=== PATIENT | female | born 1975 | race Caucasian/White ===

== ENCOUNTER → 2017-02-19 | Outpatient (CLI) | payer OTHER ==
[2017-02-19 14:12] VITALS: BP 109/78; PULSE 94; RESP 15; TEMP 99.8; BMI 38.5
--- NOTE | 2017-02-19 14:37 | P.HPBAR ---
Bariatric H&P - History & Physicial H&P Date: 02/19/17 History & Physicial: Visit/CC: presurgical\EGD results Patient initial contact: Initial weight: 110.268 kg Initial weight in pounds: 243.10 Height: 5 ft 5.75 in Initial BMI: 39.5 Last weight: Current weight: 107.365 kg Current weight in pounds: 236.70 Current BMI: 38.5 [place] body weight (based on NIH guidelines): 58.4 kg Excess body weight loss: 5.5% The patient is a 42 year-old F who presents for Bariatric Assessment. Patient is preoperative for sleeve gastrectomy. She underwent recent EGD is found have evidence of chronic esophagitis. She is currently taking Zantac twice a day. Past Medical History Past Medical History: GERD/Reflux, Hyperlipidemia, Osteoarthritis (OA) Additional Past Medical History / Comment(s): DIVERTICULITIS, PLANTAR FASCIITIS. , SLEEP STUDY- STATES NO RESULTS YET. History of Any Multi-Drug Resistant Organisms: None Reported Past Surgical History: Appendectomy, Cholecystectomy, Tonsillectomy, Tubal Ligation Additional Past Surgical History / Comment(s): FOOT SURGERY Past Anesthesia/Blood Transfusion Reactions: No Reported Reaction Smoking Status: Current every day smoker - Past Family History Mother Family Medical History: Cancer Additional Family Medical History / Comment(s): KIDNEY CA Father Family Medical History: Cancer Additional Family Medical History / Comment(s): COLON CANCER Sister(s) Family Medical History: Cancer Additional Family Medical History / Comment(s): MELANOMA Surgical - Exam Vital Signs Temp Pulse Resp BP 99.8 F H 94 15 109/78 02/19/17 14:06 02/19/17 14:06 02/19/17 14:06 02/19/17 14:06 - General well developed, no distress - Eyes PERRL - ENT normal pinna - Neck no masses - Respiratory normal expansion - Cardiovascular Rhythm: regular - Abdomen Abdomen: soft, non tender Bariatric Assessment & Plan Plan: RBC with BMI 38 GERD patient will continue Zantac for medical therapy. Patient will follow-up in 3 months. We discussed gastric sleeve and over the risks of the procedure. Bariatric Checklist Checklist: Plan: Checklist: EGD: 1. Hiatal hernia: 2. H. Pylori: HgbA1c: Vitamin D: Smoking: Current every day smoker Primary care physician referral: [facility] Psychiatry clearance: Cardiology clearance: Sleep study: Diet journal: VTE risk score: VTE risk level: Rehab needs at discharge:
[2017-02-19 14:51] LABS: EKG EKG PERFORMED
[2017-02-19 15:06] LABS: CH 30.9; CHCM 32.9; HCT 38.5 % (34.0-46.0); HDW 2.48; HGB 12.4 gm/dL (11.4-16.0); MCH 30.5 pg (25.0-35.0); MCHC 32.3 g/dL (31.0-37.0); MCV 94.4 fL (80.0-100.0); Mean Platelet Volume 7.2; RBC 4.08 m/uL (3.80-5.40); RDW 14.4 % (11.5-15.5); WBC 7.5 k/uL (3.8-10.6)
[2017-02-19 15:23] LABS: ALT 37 U/L (9-52); AST 19 U/L (14-36); Alkaline Phosphatase 75 U/L (38-126); Anion Gap 7 mmol/L; Blood Urea Nitrogen 13 mg/dL (7-17); Calcium 9.5 mg/dL (8.4-10.2); Carbon Dioxide 25 mmol/L (22-30); Chloride 108 mmol/L (98-107); Glucose 90 mg/dL (74-99); Non-African American GFR(MDRD) >60 (>60 ml/min/1.73 sqM); Potassium 4.4 mmol/L (3.5-5.1); Sodium 140 mmol/L (137-145); Total Bilirubin 0.2 mg/dL (0.2-1.3); Total Protein 6.3 g/dL (6.3-8.2)
== END ==
LOC: BARWHC3 13:28
PROVIDERS: ATTEND Surgery
DX: Z48.815 Encounter for surgical aftercare following surgery on the digestive system (principal); K21.9 Gastro-esophageal reflux disease without esophagitis; F17.200 Nicotine dependence, unspecified, uncomplicated; Z79.899 Other long term (current) drug therapy; Z98.84 Bariatric surgery status
CPT/HCPCS: 80053; 82607; 85027; 82306; 83036; 93005; G0463; 99211

== ENCOUNTER → 2017-06-11 | Outpatient (CLI) | payer OTHER ==
[2017-06-11 11:21] VITALS: BMI 40.3
== END | disposition home or self-care (01) ==
LOC: BARWHC3 08:29
PROVIDERS: ATTEND Surgery
DX: E66.01 Morbid (severe) obesity due to excess calories (principal); Z68.41 Body mass index [BMI] 40.0-44.9, adult; Z71.3 Dietary counseling and surveillance
CPT/HCPCS: 97804

== ENCOUNTER → 2018-04-22 | Outpatient (CLI) | payer OTHER ==
[2018-04-22 14:29] VITALS: BP 114/60; PULSE 87; RESP 16; TEMP 98.5; BMI 42.1
--- NOTE | 2018-04-22 14:36 | P.HPBAR ---
Bariatric H&P - History & Physicial H&P Date: 04/22/18 History & Physicial: Visit/CC: to pursue surgery again different ins Patient initial contact: Initial weight: 110.268 kg Initial weight in pounds: 243.10 Height: 5 ft 5.75 in Initial BMI: 39.5 Last weight: Current weight: 117.48 kg Current weight in pounds: 259.00 Current BMI: 42.1 [place] body weight (based on NIH guidelines): 58.4 kg Excess body weight loss: The patient is a 43 year-old F who presents for Bariatric Assessment. Patient presents today for sleeve gastrectomy previously or constipation. Her insurance has changed. She is requiring 6 months of position or weight loss. Patient is gained 11 pounds since her last visit. We went over the risks and benefits of sleeve gastrectomy. Past Medical History Past Medical History: GERD/Reflux, Hyperlipidemia, Osteoarthritis (OA) Additional Past Medical History / Comment(s): DIVERTICULITIS, PLANTAR FASCIITIS. , SLEEP STUDY- STATES NO RESULTS YET. History of Any Multi-Drug Resistant Organisms: None Reported Past Surgical History: Appendectomy, Cholecystectomy, Tonsillectomy, Tubal Ligation Additional Past Surgical History / Comment(s): FOOT SURGERY Past Anesthesia/Blood Transfusion Reactions: No Reported Reaction Past Psychological History: Anxiety, Depression Smoking Status: Current every day smoker Past Alcohol Use History: None Reported Additional Past Alcohol Use History / Comment(s): SMOKING 1/2 PPD (DOWN FROM 1 PPD). SMOKING FOR 20 YEARS. Past Drug Use History: None Reported - Past Family History Mother Family Medical History: Cancer Additional Family Medical History / Comment(s): KIDNEY CA Father Family Medical History: Cancer Additional Family Medical History / Comment(s): COLON CANCER Sister(s) Family Medical History: Cancer Additional Family Medical History / Comment(s): MELANOMA Surgical - Exam Vital Signs Temp Pulse Resp BP 98.5 F 87 16 114/60 04/22/18 14:23 04/22/18 14:23 04/22/18 14:23 04/22/18 14:23 - General well developed, well nourished, no distress - Eyes PERRL - ENT normal pinna - Neck no masses - Respiratory normal expansion - Cardiovascular Rhythm: regular - Abdomen Abdomen: soft, non tender Bariatric Assessment & Plan Plan: Morbid obesity, BMI 42. Patient will follow-up in one month. She [facility]. Bariatric Checklist Checklist: Plan: Checklist: EGD: 1. Hiatal hernia: 2. H. Pylori: HgbA1c: Vitamin D: Smoking: Current every day smoker Primary care physician referral: cy chavarria Psychiatry clearance: Cardiology clearance: Sleep study: Diet journal: VTE risk score: VTE risk level: Rehab needs at discharge:
== END | disposition home or self-care (01) ==
LOC: BARWHC3 13:44
PROVIDERS: ATTEND Surgery
DX: E66.01 Morbid (severe) obesity due to excess calories (principal); K21.9 Gastro-esophageal reflux disease without esophagitis; E78.5 Hyperlipidemia, unspecified; M19.90 Unspecified osteoarthritis, unspecified site; F17.210 Nicotine dependence, cigarettes, uncomplicated; F41.9 Anxiety disorder, unspecified; F32.9 Major depressive disorder, single episode, unspecified; Z90.49 Acquired absence of other specified parts of digestive tract; Z90.89 Acquired absence of other organs; Z98.51 Tubal ligation status; Z98.890 Other specified postprocedural states; Z68.41 Body mass index [BMI] 40.0-44.9, adult
CPT/HCPCS: 99211

== ENCOUNTER → 2018-05-13 | Outpatient (CLI) | payer OTHER ==
[2018-05-13 15:30] VITALS: BP 123/62; PULSE 78; RESP 16; TEMP 98.2; BMI 41.8
--- NOTE | 2018-05-14 09:39 | P.HPBAR ---
Bariatric H&P - History & Physicial H&P Date: 05/13/18 History & Physicial: Visit/CC: PRE-SURG? Patient initial contact: Initial weight: 110.268 kg Initial weight in pounds: 243.10 Height: 5 ft 5.75 in Initial BMI: 39.5 Last weight: Current weight: 116.573 kg Current weight in pounds: 257.00 Current BMI: 41.8 [place] body weight (based on NIH guidelines): 58.4 kg Excess body weight loss: The patient is a 43 year-old F who presents for Bariatric Assessment. Patient presents for presurgical consultation. She states she has completed her 6 or 7 months a physician directed weight loss consultations. We went over the sleeve gastrectomy. Patient has a good understanding of the sleeve gastrectomy. Her BMI is 41. Past Medical History Past Medical History: GERD/Reflux, Hyperlipidemia, Osteoarthritis (OA) Additional Past Medical History / Comment(s): DIVERTICULITIS, PLANTAR FASCIITIS. , SLEEP STUDY- STATES NO RESULTS YET. History of Any Multi-Drug Resistant Organisms: None Reported Past Surgical History: Appendectomy, Cholecystectomy, Tonsillectomy, Tubal Ligation Additional Past Surgical History / Comment(s): FOOT SURGERY Past Anesthesia/Blood Transfusion Reactions: No Reported Reaction Past Psychological History: Anxiety, Depression Smoking Status: Current every day smoker Past Alcohol Use History: None Reported Additional Past Alcohol Use History / Comment(s): SMOKING 1/2 PPD (DOWN FROM 1 PPD). SMOKING FOR 20 YEARS. Past Drug Use History: None Reported - Past Family History Mother Family Medical History: Cancer Additional Family Medical History / Comment(s): KIDNEY CA Father Family Medical History: Cancer Additional Family Medical History / Comment(s): COLON CANCER Sister(s) Family Medical History: Cancer Additional Family Medical History / Comment(s): MELANOMA Surgical - Exam Vital Signs Temp Pulse Resp BP 98.2 F 78 16 123/62 05/13/18 15:27 05/13/18 15:27 05/13/18 15:27 05/13/18 15:27 BMI 41 - General well developed, well nourished, no distress - Eyes PERRL - ENT normal pinna - Neck no masses - Respiratory normal expansion - Cardiovascular Rhythm: regular - Abdomen Abdomen: soft, non tender Bariatric Assessment & Plan Plan: Morbid obesity, BMI 41. Patient will be scheduled for sleeve gastrectomy once her authorization is complete. We went over the risks and benefits of procedure including conversion to the open procedure and injury to the stomach liver spleen. And gastric staple line disruption, bleeding or scarring. Bariatric Checklist Checklist: Plan: Checklist: EGD: 1. Hiatal hernia: 2. H. Pylori: HgbA1c: Vitamin D: Smoking: Current every day smoker Primary care physician referral: cy chavarria Psychiatry clearance: Cardiology clearance: Sleep study: Diet journal: VTE risk score: VTE risk level: Rehab needs at discharge:
== END | disposition home or self-care (01) ==
LOC: BARWHC3 15:27
PROVIDERS: ATTEND Surgery
DX: E66.01 Morbid (severe) obesity due to excess calories (principal); F17.210 Nicotine dependence, cigarettes, uncomplicated; Z68.41 Body mass index [BMI] 40.0-44.9, adult
CPT/HCPCS: 99211

== ENCOUNTER 2018-06-25 06:27 | Inpatient (IN) | payer OTHER ==
[~2018-06-25 06:27] MED LIST: DEXAMETHASONE SOD PHOSPHATE 10 MG/ML 1 ML VIAL IV ONE; ENOXAPARIN 40 MG/0.4 ML SYRINGE SQ ONE; MIDAZOLAM (PF) 2 MG/2 ML VIAL IV PRN; ONDANSETRON 4 MG/2 ML VIAL IVP ONE; SCOPOLAMINE 1.5MG/72HR PATCH TRANSDERM ONE; ceFAZolin IN SWFI 2 GM/20 ML SYRINGE IVP ONE
[2018-06-25] MEDS: LACTATED RINGERS 1,000 ML IV SCH (07:01)
[2018-06-25] MEDS ORDERED: LIDOCAINE 1% 20 ML VIAL (10MG/ML) FOR IV START INTRADERMA ONE (07:02)
[2018-06-25] MEDS ORDERED: MIDAZOLAM 2 MG/2 ML VIAL IV ONE (07:10)
[2018-06-25] MEDS ORDERED: ACETAMINOPHEN IV (For NPO) 1,000 MG/100 ML VIAL ONE (07:50)
[2018-06-25] MEDS ORDERED: ROCURONIUM BROMIDE 10 MG/ML 10 ML VIAL IV ONE (07:50)
[2018-06-25] MEDS ORDERED: PROPOFOL 10 MG/ML 20 ML VIAL IV ONE (07:50)
[2018-06-25] MEDS ORDERED: LIDOCAINE 1% INJ 10MG/ML (20 ML MDV) ONE (07:50)
[2018-06-25] MEDS ORDERED: KETOROLAC 30 MG/ML 1 ML VIAL ONE (07:50)
[2018-06-25] MEDS ORDERED: GLYCOPYRROLATE 0.2 MG/ML 2 ML VIAL ONE (07:50)
[2018-06-25] MEDS ORDERED: SUCCINYLCHOLINE CHLORIDE 100 MG/5 ML SYR IV ONE (07:50)
[2018-06-25] MEDS ORDERED: NEOSTIGMINE 1 MG/ML 10 ML VIAL ONE (07:50)
[2018-06-25] MEDS ORDERED: MIDAZOLAM 2 MG/2 ML VIAL ONE (07:50)
[2018-06-25] MEDS ORDERED: fentaNYL (PF) 50 MCG/ML 2 ML AMP ONE (07:50)
--- NOTE | 2018-06-25 07:55 | P.GSHP ---
History of Present Illness H&P Date: 06/25/18 Chief Complaint: Morbid obesity, BMI 41 This a 43-year-old female who presents today for laparoscopic sleeve gastrectomy. Patient has had lifetime pros obesity. Her BMI is 41. Patient is well detailed on the procedure sleeve gastrectomy. She understands risks of surgery including bleeding, conversion to the open procedure, issues with the gastric staple line such as bleeding, scarring and perforation. Past Medical History Past Medical History: Eye Disorder, GERD/Reflux, Hyperlipidemia, Memory Impairment, Osteoarthritis (OA), Sleep Apnea/CPAP/BIPAP Additional Past Medical History / Comment(s): DIVERTICULITIS, PLANTAR FASCIITIS. No CPAP use. "Very dry eyes". History of Any Multi-Drug Resistant Organisms: None Reported Past Surgical History: Appendectomy, Cholecystectomy, Hysterectomy, Tonsillectomy, Tubal Ligation Additional Past Surgical History / Comment(s): FOOT SURGERY. Past Anesthesia/Blood Transfusion Reactions: No Reported Reaction Past Psychological History: Anxiety, Depression Smoking Status: Current every day smoker Past Alcohol Use History: None Reported Additional Past Alcohol Use History / Comment(s): SMOKING <1/2 PPD (DOWN FROM 1 PPD). SMOKING FOR 20 YEARS. Past Drug Use History: None Reported - Past Family History Mother Family Medical History: Cancer Additional Family Medical History / Comment(s): KIDNEY CA Father Family Medical History: Cancer Additional Family Medical History / Comment(s): COLON CANCER Sister(s) Family Medical History: Cancer Additional Family Medical History / Comment(s): MELANOMA Medications and Allergies Home Medications Medication Instructions Recorded Confirmed Type Atorvastatin [Lipitor] 20 mg PO QAM 01/15/17 06/18/18 History Sertraline [Zoloft] 200 mg PO QAM 01/15/17 06/18/18 History Omeprazole [PriLOSEC] 20 mg PO QAM 06/11/17 06/18/18 History Divalproex Sodium [Depakote] 1,500 mg PO QAM 06/10/18 06/18/18 History Ibuprofen [Motrin] 800 mg PO TID PRN 06/10/18 06/18/18 History Acetaminophen Tab [Tylenol Tab] 3 tab PO Q4-6H PRN 06/18/18 06/18/18 History Allergies Allergy/AdvReac Type Severity Reaction Status Date / Time No Known Allergies Allergy Verified 06/25/18 06:46 Surgical - Exam Vital Signs Temp Pulse Resp BP Pulse Ox 97.6 F 84 16 102/43 95 06/25/18 06:57 06/25/18 06:57 06/25/18 06:57 06/25/18 06:57 06/25/18 06:57 - General BMI 41 well developed, no distress - Eyes PERRL - ENT normal pinna - Neck no masses - Respiratory normal expansion - Cardiovascular Rhythm: regular - Abdomen Abdomen: soft, non tender Assessment and Plan Assessment: RBC, BMI 41. We'll perform laparoscopic sleeve gastrectomy.
[2018-06-25] MEDS ORDERED: BUPIVACAINE-EPI 0.5%-1:200,000 10 ML VIAL SQ ONE (08:36)
[2018-06-25] MEDS ORDERED: METHYLENE BLUE 3 MG in DEXTROSE 5% IN WATER 500 ML IRRIGATION ONE ×2 (09:15)
[2018-06-25] MEDS ORDERED: LACTATED RINGERS 1,000 ML IV ONE (09:30)
[2018-06-25] MEDS: HYDROmorphone 0.5 MG/0.5 ML SYRINGE IVP PRN ×4 (09:44→09:58)
[2018-06-25] MEDS ORDERED: ONDANSETRON 4 MG/2 ML VIAL IVP ONE (09:50)
[2018-06-25] MEDS ORDERED: NALOXONE 0.4 MG/ML 1 ML VIAL IV PRN (09:58)
--- NOTE | 2018-06-25 09:58 | P.OP ---
Date of Procedure: 06/25/18 Preoperative Diagnosis: Morbid obesity, BMI 41 Postoperative Diagnosis: Morbid obesity, BMI 41 Procedure(s) Performed: Laparoscopic sleeve gastrectomy Laparoscopic repair of hiatal hernia Anesthesia: VIPUL Surgeon: Edis Ramsey Estimated Blood Loss (ml): 20 Pathology: other (Gastric sleeve) Condition: stable Disposition: PACU Description of Procedure: The patient was placed on the operating room table in the supine position. She received general anesthesia and then was placed in dorsal lithotomy position. Her abdomen was prepped and draped in sterile fashion. The skin incision sites were anesthetized 1% local Xylocaine. And then the skin was incised with an 11 blade in the left lateral position. Using a blade less trocar under direct visualization the peritoneal cavity was entered. The abdomen was insufflated and then a 5 mm laparoscope was placed into the peritoneal cavity. A 5 mm trocar was placed in the right epigastric, and right lateral position. A 15 mm trocar was placed in the supra-umbilical position and another 5 mm trocar was placed in the left lateral position. The left lateral lobe of the liver was retracted. The stomach was visualized. The patient appeared to have a small sliding hiatal hernia. A crural dissection used the Harmonic scissors was performed. The leo was dissected in a 360 fashion. A retrocrural repair of the hernia was performed. The greater curvature of the stomach was then dissected using the Harmonic scissors. The dissection occurred approximately 5 cm from the pylorus to the level of the left leo. . At this point a 40-Syriac bougie dilator was placed the oropharynx and passed into the esophagus and into the stomach by the GREEN END WORKER. The sleeve gastrectomy was performed by using the powered echelon stapler with a seam guard buttress material. Sequential firings of the stapler were performed. The gastric remnant was then brought out through the 15 mm trocar site. The dilator was withdrawn. And a orogastric tube was replaced into the stomach. The stomach was insufflated with 200 mL of methylene blue normal saline. There was no evidence of extravasation. The abdomen was irrigated there is no bleeding seen. The Terell-Pascale device was used to close the 15 mm trocar with 0 Vicryl. Skin was closed with interrupted 3-0 Monocryl sutures once the trochars withdrawn. Dermabond dressing was applied. Patient was sent to recovery in stable condition.
[2018-06-25] MEDS: HYDROmorphone 1 MG/ML 1 ML SYRINGE IVP PRN ×4 (11:03→20:26)
[2018-06-25] MEDS: KETOROLAC 30 MG/ML 1 ML VIAL IVP SCH ×2 (11:04→17:11)
[2018-06-25] MEDS: ALBUTEROL NEBULIZED 2.5 MG/3 ML INHALATION SCH ×3 (12:21→19:45)
[2018-06-25] MEDS: ONDANSETRON 4 MG/2 ML VIAL IVP PRN ×3 (13:14→21:19)
[2018-06-25] MEDS: SIMETHICONE 40 MG/0.6 ML DROPS 2,000 MG/30 ML BOTTLE PO PRN (13:22)
[2018-06-25] MEDS: 0.9% NACL WITH KCL 20 MEQ/L 1,000 ML IV SCH ×2 (14:00→20:00)
[2018-06-25] MEDS: AMPICILLIN-SULBACTAM 3 GM in SODIUM CHLORIDE 0.9% 100 ML IVPB SCH ×2 (14:00→20:00)
--- NOTE | 2018-06-25 14:14 | P.CONS ---
History of Present Illness - History of Present Illness this is a pleasant 43 years old female with past medical history of GERD, hyp erlipidemia, sleep apnea, esteoarthritis, history of hysterectomy. Who presents for elective laparoscopic surgery for her hiatal hernia patient is postoperative day #0. She denies chest pain or dyspnea. No change in urine or bowel habits. No fever , however she has nausea she is nothing by mouth currently, and she is going for swallow evaluation in the morning Review of Systems CONSTITUTIONAL: No fever, no malaise, no fatigue. HEENT: No recent visual problems or hearing problems. Denied any sore throat. CARDIOVASCULAR: No orthopnea, PND, no palpitations, no syncope. PULMONARY: No shortness of breath, no cough, no hemoptysis. GASTROINTESTINAL: No diarrhea, no nausea, no vomiting, no abdominal pain. Normoactive bowel sounds. NEUROLOGICAL: No headaches, no weakness, no numbness. HEMATOLOGICAL: Denies any bleeding or petechiae. GENITOURINARY: Denies any burning micturition, frequency, or urgency. MUSCULOSKELETAL/RHEUMATOLOGICAL: Denies any joint pain, swelling, or any muscle pain. ENDOCRINE: Denies any polyuria or polydipsia. Past Medical History Past Medical History: Eye Disorder, GERD/Reflux, Hyperlipidemia, Memory Impairment, Osteoarthritis (OA), Sleep Apnea/CPAP/BIPAP Additional Past Medical History / Comment(s): DIVERTICULITIS, PLANTAR FASCIITIS. No CPAP use. "Very dry eyes". History of Any Multi-Drug Resistant Organisms: None Reported Past Surgical History: Appendectomy, Cholecystectomy, Hysterectomy, Tonsillect maur, Tubal Ligation Additional Past Surgical History / Comment(s): FOOT SURGERY. Past Anesthesia/Blood Transfusion Reactions: No Reported Reaction Past Psychological History: Anxiety, Depression Smoking Status: Current every day smoker Past Alcohol Use History: None Reported Additional Past Alcohol Use History / Comment(s): SMOKING <1/2 PPD (DOWN FROM 1 PPD). SMOKING FOR 20 YEARS. Past Drug Use History: None Reported - Past Family History Mother Family Medical History: Cancer Additional Family Medical History / Comment(s): KIDNEY CA Father Family Medical History: Cancer Additional Family Medical History / Comment(s): COLON CANCER Sister(s) Family Medical History: Cancer Additional Family Medical History / Comment(s): MELANOMA Medications and Allergies Home Medications Medication Instructions Recorded Confirmed Type Sertraline [Zoloft] 200 mg PO QAM 01/15/17 06/25/18 History Omeprazole [PriLOSEC] 20 mg PO QAM 06/11/17 06/25/18 History Divalproex Sodium [Depakote] 1,500 mg PO QAM 06/10/18 06/25/18 History Ibuprofen [Motrin] 800 mg PO TID PRN 06/10/18 06/25/18 History Acetaminophen Tab [Tylenol Tab] 975 mg PO Q4-6H PRN 06/18/18 06/25/18 History Atorvastatin [Lipitor] 20 mg PO DAILY 06/25/18 06/25/18 History Allergies Allergy/AdvReac Type Severity Reaction Status Date / Time No Known Allergies Allergy Verified 06/25/18 10:10 Physical Exam Vitals: Vital Signs Temp Pulse Pulse Resp BP Pulse Ox 06/25/18 12:33 75 06/25/18 12:21 68 06/25/18 10:16 60 16 143/66 95 06/25/18 10:01 62 16 135/68 92 L 06/25/18 09:47 61 16 141/77 98 06/25/18 09:32 97.8 F 74 18 119/84 98 06/25/18 07:25 70 16 95 06/25/18 06:57 97.6 F 84 16 102/43 95 Intake and Output 06/24/18 06/25/18 06/25/18 22:59 06:59 14:59 Intake Total 1600.3 Output Total 5 Balance 1595.3 Intake: IV 1600.3 Output: Estimated Blood Loss 5 Other: Weight 111 kg GENERAL: The patient is alert and oriented x3, not in any acute distress. Well developed, well nourished. HEENT: Pupils are round and equally reacting to light. EOMI. No scleral icterus. No conjunctival pallor. Normocephalic, atraumatic. No pharyngeal erythema. No thyromegaly. CARDIOVASCULAR: S1 and S2 present. No murmurs, rubs, or gallops. PULMONARY: Chest is clear to auscultation, no wheezing or crackles. -ABDOMEN: Soft, nontender, nondistended, normoactive bowel sounds. No palpable organomegaly. laparoscopic wounds are healing MUSCULOSKELETAL: No joint swelling or deformity. EXTREMITIES: No cyanosis, clubbing, or pedal edema. NEUROLOGICAL: Gross neurological examination did not reveal any focal deficits. SKIN: No rashes. Assessment and Plan Assessment: laparoscopic correction of her hiatal hernia with sleeve gastrectomy history of GERD Hyperlipidemia History of sleep apnea Osteoarthritis Plan: this is a pleasant 43 years old female who presents for laparoscopic correction of he had full hernia. Continue with pain medication. Continue with incentive spirometry. Labs and medication were reviewed.. Continue same treatment. Continue with symptomatic treatment. Monitor lytes and vitals. DVT and GI prophylaxis. Further recommendations of the clinical course of the patient thank you for consulting us
[2018-06-25] MEDS ORDERED: METHYL SALICYLATE/MENTHOL CREAM 5 OZ TOPICAL PRN (14:27)
[2018-06-25] MEDS: HYOSCYAMINE ORAL DROPS 1.875 MG/15 ML BOTTLE PO PRN (17:12)
[2018-06-25] MEDS: ENOXAPARIN 40 MG/0.4 ML SYRINGE SQ SCH (20:26)
[2018-06-26] MEDS: KETOROLAC 30 MG/ML 1 ML VIAL IVP SCH ×5 (00:08→23:33)
[2018-06-26] MEDS: SIMETHICONE 40 MG/0.6 ML DROPS 2,000 MG/30 ML BOTTLE PO PRN ×2 (00:09→22:29)
[2018-06-26] MEDS: HYOSCYAMINE ORAL DROPS 1.875 MG/15 ML BOTTLE PO PRN ×3 (00:09→22:29)
[2018-06-26] MEDS: HYDROmorphone 1 MG/ML 1 ML SYRINGE IVP PRN ×5 (01:43→22:29)
[2018-06-26] MEDS: 0.9% NACL WITH KCL 20 MEQ/L 1,000 ML IV SCH ×2 (01:44→09:50)
[2018-06-26] MEDS: ONDANSETRON 4 MG/2 ML VIAL IVP PRN ×4 (03:29→18:58)
[2018-06-26] MEDS: PANTOPRAZOLE 40 MG/10 ML VIAL IV SCH (07:11)
[2018-06-26 07:33] LABS: Basophils % (A) 0 %; Eosinophils # (A) 0.1 k/uL (0-0.7); Eosinophils % (A) 1 %; HCT 32.1 % (34.0-46.0); HGB 10.5 gm/dL (11.4-16.0); Lymphocytes # (A) 2.4 k/uL (1.0-4.8); Lymphocytes % (A) 32 %; MCH 29.5 pg (25.0-35.0); MCHC 32.8 g/dL (31.0-37.0); Mean Platelet Volume 7.3; Monocytes # (A) 0.3 k/uL (0-1.0); Monocytes % (A) 4 %; Neutrophils # (A) 4.6 k/uL (1.3-7.7); Neutrophils % (A) 62 %; Platelet Count 260 k/uL (150-450); RBC 3.57 m/uL (3.80-5.40); WBC 7.4 k/uL (3.8-10.6)
[2018-06-26] MEDS: ALBUTEROL NEBULIZED 2.5 MG/3 ML INHALATION SCH ×4 (07:55→19:38)
[2018-06-26 08:01] LABS: Anion Gap 5 mmol/L; Blood Urea Nitrogen 8 mg/dL (7-17); Calcium 9.1 mg/dL (8.4-10.2); Carbon Dioxide 28 mmol/L (22-30); Chloride 110 mmol/L (98-107); Magnesium 1.9 mg/dL (1.6-2.3); Phosphorus 2.9 mg/dL (2.5-4.5); Potassium 4.3 mmol/L (3.5-5.1); Sodium 143 mmol/L (137-145)
[2018-06-26] MEDS: LACTATED RINGERS 1,000 ML IV SCH (08:09)
[2018-06-26] MEDS: ENOXAPARIN 40 MG/0.4 ML SYRINGE SQ SCH ×2 (08:15→20:51)
[2018-06-26] MEDS ORDERED: DEXAMETHASONE SOD PHOSPHATE 10 MG/ML 1 ML VIAL IV STA (10:29)
--- NOTE | 2018-06-26 13:40 | P.PN ---
Subjective Progress Note Date: 06/26/18 CHIEF COMPLAINT: Morbid obesity HISTORY OF PRESENT ILLNESS: 43-year-old female who underwent laparoscopic sleeve gastrectomy and repair of hiatal hernia. POD #1. Patient has been complaining of nausea and vomiting this morning. She is unable to have esophagram performed due to nausea. PHYSICAL EXAM: VITAL SIGNS: Reviewed. GENERAL: Well-developed in no acute distress. HEENT: No sclera icterus. Extraocular movements grossly intact. Moist buccal mucosa. Head is atraumatic, normocephalic. ABDOMEN: Soft. Nondistended. Nontender. NEUROLOGIC: Alert and oriented. Cranial nerves II through XII grossly intact. ASSESSMENT: 1. Morbid obesity, status post laparoscopic sleeve gastrectomy and repair of hiatal hernia PLAN: 1. Continue Zofran 2. Decadron 10 mg IV 1 dose 3. Perform esophagram FREDDY if patients nausea improves 4. Patient informed her discharge will be delayed until tomorrow Nurse practitioner note has been reviewed by physician. Signing provider agrees with the documented findings, assessment, and plan of care. Objective - Vital Signs Vital signs: Vital Signs Temp 98.4 F 06/26/18 07:57 Pulse 72 06/26/18 12:02 Resp 16 06/26/18 07:57 BP 105/64 06/26/18 07:57 Pulse Ox 90 L 06/26/18 07:57 Intake & Output 06/25/18 06/26/18 06/26/18 18:59 06:59 18:59 Intake Total 1600.3 1250 Output Total 5 3 Balance 1595.3 1247 Intake: IV 1600.3 Intake, IV Titration 1250 Amount 0.9% NaCl with KCl 20 Meq 1250 /l 1,000 ml @ 150 mls/hr IV .Q6H40M [facility] Rx#: [id number] Output: Emesis 3 Estimated Blood Loss 5 Other: Voiding Method Toilet Toilet # Voids 3 # Emeses 3 - Labs CBC & Chem 7: 06/26/18 06:48 06/26/18 06:48 Labs: Abnormal Lab Results - Last 24 Hours (Table) 06/26/18 06/26/18 Range/Units 06:48 06:48 RBC 3.57 L (3.80-5.40) m/uL Hgb 10.5 L (11.4-16.0) gm/dL Hct 32.1 L (34.0-46.0) % Chloride 110 H (98-107) mmol/L
--- NOTE | 2018-06-26 14:20 | FL ---
EXAMINATION TYPE: FL UGI DATE OF EXAM: 06/26/2018 COMPARISON: NONE HISTORY: Status post partial gastrectomy. TECHNIQUE: A single contrast UGI study is performed. FINDINGS: The patient swallowed contrast without difficulty or delay. Esophageal peristalsis and mo tility are within normal limits however there is marked delay of flow of contrast along the diaphragm atic hiatus into proximal stomach. Despite prolonging the examination no contrast was seen extending into the surgical gastric sleeve. There is no evidence of contrast extravasation to suggest leak at t he gastroesophageal junction although the gastric sleeve cannot be evaluated. IMPRESSION: Marked delay of flow along the gastroesophageal junction despite prolonging study length relating to obstruction status post recent gastric sleeve surgery likely from postoperative edema.
[2018-06-26] MEDS: DEXAMETHASONE SOD PHOSPHATE 4 MG/ML 1 ML VIAL IV SCH ×2 (16:43→23:34)
--- NOTE | 2018-06-26 18:07 | P.PN ---
Subjective Progress Note Date: 06/26/18 Hospital course:this is a pleasant 43 years old female with past medical history of GERD, hyperlipidemia, sleep apnea, esteoarthritis, history of hysterectomy. Who presents for elective laparoscopic surgery for her hiatal hernia patient is postoperative day #0. She denies chest pain or dyspnea. No change in urine or bowel habits. No fever , however she has nausea she is nothing by mouth currently, and she is going for swallow evaluation in the morning 06/26/2018 postop day #1. Pain controlled. Reports nausea with emesis this morning. Denies flatus or bowel movement. Esophagram/swallow evaluation postponed as per surgery. Denies chest pain, palpitations or increasing shortness of breath. Afebrile, normal WBC. Maintaining O2 sats in the high 90s on 2 L nasal cannula. Objective - Vital Signs Vital signs: Vital Signs Temp 97.6 F 06/26/18 14:28 Pulse 66 06/26/18 15:51 Resp 16 06/26/18 07:57 BP 104/59 06/26/18 14:28 Pulse Ox 96 06/26/18 14:28 Intake & Output 06/25/18 06/26/18 06/26/18 18:59 06:59 18:59 Intake Total 1600.3 1250 Output Total 5 3 Balance 1595.3 1247 Intake: IV 1600.3 Intake, IV Titration 1250 Amount 0.9% NaCl with KCl 20 Meq 1250 /l 1,000 ml @ 150 mls/hr IV .Q6H40M [facility] Rx#: [id number] Output: Emesis 3 Estimated Blood Loss 5 Other: Voiding Method Toilet Toilet # Voids 3 4 # Emeses 3 - Exam GENERAL: The patient is sitting up in bed, alert and oriented x3, no acute distress. HEENT: Pupils are round and equally reacting to light. EOMI. No scleral icterus. No conjunctival pallor. Normocephalic, atraumatic. CARDIOVASCULAR: S1 and S2 present. No murmurs, rubs, or gallops. PULMONARY: Chest is clear to auscultation, no wheezing or crackles. -ABDOMEN: Soft, nondistended, normoactive bowel sounds. Status post surgery. No guarding, no rigidity EXTREMITIES: No cyanosis, clubbing, or pedal edema. NEUROLOGICAL: Gross neurological examination did not reveal any focal deficits. SKIN: No rashes. - Labs CBC & Chem 7: 06/26/18 06:48 06/26/18 06:48 Labs: Abnormal Lab Results - Last 24 Hours (Table) 06/26/18 06/26/18 Range/Units 06:48 06:48 RBC 3.57 L (3.80-5.40) m/uL Hgb 10.5 L (11.4-16.0) gm/dL Hct 32.1 L (34.0-46.0) % Chloride 110 H (98-107) mmol/L Assessment and Plan Assessment: laparoscopic correction of her hiatal hernia with sleeve gastrectomy history of GERD Hyperlipidemia History of sleep apnea Osteoarthritis Plan: Continue on current medication regime , Zofran ,monitoring and symptomatic treatment. Aggressive pulmonary toileting with incentive spirometer reinforced. Esophagram postponed as per surgery secondary to patient's nausea vomiting. Increase ambulation as tolerated .Diet advancement/pain management as per surgery. The impression and plan of care has been dictated as directed. : I performed a history and examination of this patient, discussed the same with the dictator. I agree with the dictator's note ,documented as a scribe. Any additional findings or plans will be noted.
[2018-06-27] MEDS: LACTATED RINGERS 1,000 ML IV SCH (06:05)
[2018-06-27] MEDS: KETOROLAC 30 MG/ML 1 ML VIAL IVP SCH (06:06)
[2018-06-27] MEDS: DEXAMETHASONE SOD PHOSPHATE 4 MG/ML 1 ML VIAL IV SCH ×2 (06:07→11:35)
[2018-06-27] MEDS: ALBUTEROL NEBULIZED 2.5 MG/3 ML INHALATION SCH ×2 (07:30→11:07)
[2018-06-27 07:43] VITALS: BP 109/62; RESP 17; TEMP 98.3
[2018-06-27 07:44] VITALS: PULSE 76
[2018-06-27] MEDS: HYDROmorphone 1 MG/ML 1 ML SYRINGE IVP PRN (08:49)
[2018-06-27] MEDS: PANTOPRAZOLE 40 MG/10 ML VIAL IV SCH (08:49)
[2018-06-27] MEDS: ENOXAPARIN 40 MG/0.4 ML SYRINGE SQ SCH (08:50)
--- NOTE | 2018-06-27 09:53 | FL ---
Sleeve gastrectomy esophogram. EXAMINATION TYPE: FL UGI w esophagus DATE OF EXAM: 06/27/2018 9:49 AM CLINICAL HISTORY: Follow-up obstruction COMPARISON: 06/26/2018 Post gastric sleeve UGI. Pt given 25ml Isovue 370 1.11min fluoro time Sleeve gastrectomy esophagram and upper GI was performed following the ingestion of thin liquid bariu m. Esophageal peristalsis and motility are within normal limits. Noted are changes of sleeve gastrec neo. There is mild delay in esophagogastric transit much improved from yesterday's study. Contrast i s identified within the distal stomach. IMPRESSION: There is mild delay in esophagogastric transit much improved from yesterday's study. Contrast is daljit ntified within the distal stomach. Mild persistent edema at the sleeve gastrectomy site.
[2018-06-27] MEDS ORDERED: HYDROcodone/APAP 15 ML SOLUTION PO PRN (10:44)
[2018-06-27] MEDS ORDERED: DOCUSATE ORAL SOLN 100 MG/10 ML CUP PO SCH (11:00)
[2018-06-27 11:02] VITALS: BMI 40.7
--- NOTE | 2018-06-27 12:35 | P.DS ---
Providers Date of admission: 06/25/18 06:27 Expected date of discharge: 06/27/18 Attending physician: Edis Ramsey Consults: 06/25/18 09:58 Consult Physician Routine Consulting Provider: Robi Tsai Consult Reason/Comments: Medical management Do you want consulting provider notified?: Yes Primary care physician: Stated None Hospital Course: 43-year-old female who underwent laparoscopic sleeve gastrectomy and repair of hiatal hernia. Patient experienced nausea and inability to tolerate liquids on postop day #1. Esophagram revealed postoperative edema. The patient was started on Decadron [id number]. Repeat esophagram reveals improvement with contrast identified in the distal stomach. The patient is tolerating clear liquids. Her nausea has improved. She is stable for discharge home today. She is to follow-up with Dr. Ramsey in 2 weeks. Please see EMR for further hospital course details. Discharge Diagnosis: 1. Morbid obesity, status post laparoscopic sleeve gastrectomy and repair of hiatal hernia Nurse practitioner note has been reviewed by physician. Signing provider agrees with the documented findings, assessment, and plan of care. Plan - Discharge Summary Discharge Rx Participant: Yes New Discharge Prescriptions: New HYDROcodone/APAP 5-325MG [[place] 5-325] 1 tab PO Q4HR PRN 3 Days #18 tab PRN Reason: Pain Docusate [Colace] 100 mg PO BID PRN #30 capsule PRN Reason: Constipation Omeprazole 40 mg PO DAILY #30 capsule. Ondansetron Odt [Zofran Odt] 4 mg PO Q8HR PRN #30 tab PRN Reason: Nausea Sucralfate [Carafate] 1 gm PO BID #60 tablet No Action Sertraline [Zoloft] 200 mg PO QAM Omeprazole [PriLOSEC] 20 mg PO QAM Divalproex Sodium [Depakote] 1,500 mg PO QAM Ibuprofen [Motrin] 800 mg PO TID PRN PRN Reason: Pain Acetaminophen Tab [Tylenol Tab] 975 mg PO Q4-6H PRN PRN Reason: Pain Atorvastatin [Lipitor] 20 mg PO DAILY Discharge Medication List Sertraline [Zoloft] 200 mg PO QAM 01/15/17 [History] Omeprazole [PriLOSEC] 20 mg PO QAM 06/11/17 [History] Divalproex Sodium [Depakote] 1,500 mg PO QAM 06/10/18 [History] Ibuprofen [Motrin] 800 mg PO TID PRN 06/10/18 [History] Acetaminophen Tab [Tylenol Tab] 975 mg PO Q4-6H PRN 06/18/18 [History] Atorvastatin [Lipitor] 20 mg PO DAILY 06/25/18 [History] Docusate [Colace] 100 mg PO BID PRN #30 capsule 06/27/18 [Rx] HYDROcodone/APAP 5-325MG [[place] 5-325] 1 tab PO Q4HR PRN 3 Days #18 tab 06/27/18 [Rx] Omeprazole 40 mg PO DAILY #30 capsule. 06/27/18 [Rx] Ondansetron Odt [Zofran Odt] 4 mg PO Q8HR PRN #30 tab 06/27/18 [Rx] Sucralfate [Carafate] 1 gm PO BID #60 tablet 06/27/18 [Rx] Follow up Appointment(s)/Referral(s): [facility],. [NON-STAFF] - 2 Weeks Activity/Diet/Wound Care/Special Instructions: No driving while taking [place] No lifting over 10 pounds You may shower. No soaking or tub baths Very light activity until you are reevaluated at your follow up appointment with your surgeon Discharge Disposition: HOME SELF-CARE
--- NOTE | 2018-06-27 18:32 | P.PN ---
Subjective Progress Note Date: 06/27/18 Hospital course:this is a pleasant 43 years old female with past medical history of GERD, hyperlipidemia, sleep apnea, esteoarthritis, history of hysterectomy. Who presents for elective laparoscopic surgery for her hiatal hernia patient is postoperative day #0. She denies chest pain or dyspnea. No change in urine or bowel habits. No fever , however she has nausea she is nothing by mouth currently, and she is going for swallow evaluation in the morning 06/26/2018 postop day #1. Pain controlled. Reports nausea with emesis this morning. Denies flatus or bowel movement. Esophagram/swallow evaluation postponed as per surgery. Denies chest pain, palpitations or increasing shortness of breath. Afebrile, normal WBC. Maintaining O2 sats in the high 90s on 2 L nasal cannula. 06/27/2018 yesterday esophagram reported postop edema, maintained on Decadron. Swallow evaluation repeated this morning with reported improvement. Clear liquids initiated as per surgery. Denies nausea vomiting. Passing flatus. Currently denies pain. Denies chest pain, palpitations or shortness of breath. Denies lightheadedness dizziness or focal deficits. Objective - Vital Signs Vital signs: Vital Signs Temp 98.3 F 06/27/18 07:42 Pulse 76 06/27/18 07:44 Resp 17 06/27/18 07:42 BP 109/62 06/27/18 07:42 Pulse Ox 96 06/27/18 07:42 Intake & Output 06/26/18 06/27/18 06/27/18 18:59 06:59 18:59 Intake Total 1811.2 Balance 1811.2 Weight 111 kg Intake: Intake, IV Titration 1811.2 Amount 0.9% NaCl with KCl 20 Meq 800 /l 1,000 ml @ 100 mls/hr IV .BY DURATION REY Rx#: [id number] Mvi, Adult No.4 with Vit 1011.2 K 10 ml Thiamine 100 mg Folic Acid 1 mg In 0.9% NaCl with KCl 20 Meq/l 1, 000 ml @ 100 mls/hr IV . BY DURATION REY Rx#: [id number] Other: Voiding Method Toilet Toilet # Voids 4 1 - Exam GENERAL: The patient is sitting up at side of bed, alert and oriented x3, no acute distress. HEENT: Pupils are round and equally reacting to light. EOMI. No scleral icterus. No conjunctival pallor. Normocephalic, atraumatic. CARDIOVASCULAR: S1 and S2 present. No murmurs, rubs, or gallops. PULMONARY: Chest is clear to auscultation, no wheezing or crackles. -ABDOMEN: Soft, nondistended, normoactive bowel sounds. Status post surgery. No guarding, no rigidity EXTREMITIES: No cyanosis, clubbing, or pedal edema. NEUROLOGICAL: Gross neurological examination did not reveal any focal deficits. SKIN: No rashes. - Labs CBC & Chem 7: 06/26/18 06:48 06/26/18 06:48 Assessment and Plan Assessment: laparoscopic correction of her hiatal hernia with sleeve gastrectomy history of GERD Hyperlipidemia History of sleep apnea Osteoarthritis Plan: Continue on current medication regime ,monitoring and symptomatic treatment. Diet advanced as per surgery with anticipated discharge pending patient tolerates diet. Aggressive pulmonary toileting. Follow-up with PCP in 1 week. Further recommendations to follow. The impression and plan of care has been dictated as directed. : I performed a history and examination of this patient, discussed the same with the dictator. I agree with the dictator's note ,documented as a scribe. Any additional findings or plans will be noted.
== END 2018-06-27 13:45 | disposition home or self-care (01) | DRG 621 ==
LOC: 2ORMAIN 06:27 → 4SSUR 09:33
PROVIDERS: ADMIT Surgery; ATTEND Surgery
PROC: 0BQT4ZZ Repair Diaphragm, Percutaneous Endoscopic Approach (ICD-10-PCS; 2018-06-25)
PROC: 0DB64Z3 Excision of Stomach, Percutaneous Endoscopic Approach, Vertical (ICD-10-PCS; principal; 2018-06-25 08:00)
DX: E66.01 Morbid (severe) obesity due to excess calories (principal); Z68.41 Body mass index [BMI] 40.0-44.9, adult; E78.5 Hyperlipidemia, unspecified; F17.210 Nicotine dependence, cigarettes, uncomplicated; F32.9 Major depressive disorder, single episode, unspecified; F41.9 Anxiety disorder, unspecified; G47.30 Sleep apnea, unspecified; K21.9 Gastro-esophageal reflux disease without esophagitis; K44.9 Diaphragmatic hernia without obstruction or gangrene; M19.90 Unspecified osteoarthritis, unspecified site; M72.2 Plantar fascial fibromatosis; G89.29 Other chronic pain; M54.9 Dorsalgia, unspecified; M25.562 Pain in left knee; M25.561 Pain in right knee; K57.90 Diverticulosis of intestine, part unspecified, without perforation or abscess without bleeding; Z79.899 Other long term (current) drug therapy; Z90.710 Acquired absence of both cervix and uterus; Z87.01 Personal history of pneumonia (recurrent); Z90.49 Acquired absence of other specified parts of digestive tract; Z98.51 Tubal ligation status; Z80.8 Family history of malignant neoplasm of other organs or systems; Z80.51 Family history of malignant neoplasm of kidney; Z80.0 Family history of malignant neoplasm of digestive organs; Z82.49 Family history of ischemic heart disease and other diseases of the circulatory system; Z83.49 Family history of other endocrine, nutritional and metabolic diseases; Z81.8 Family history of other mental and behavioral disorders; Z84.1 Family history of disorders of kidney and ureter
CPT/HCPCS: 74240; 80051; 82310; 82565; 83735; 84100; 84520; 85025; 88307; 94640

== ENCOUNTER → 2018-07-01 | Outpatient (CLI) | payer OTHER ==
[2018-07-01 09:58] VITALS: BP 132/65; PULSE 61; RESP 16; TEMP 98.2
[2018-07-01 10:10] VITALS: BMI 39.6
== END | disposition home or self-care (01) ==
LOC: BARWHC3 09:47
PROVIDERS: ATTEND Surgery
DX: E66.01 Morbid (severe) obesity due to excess calories (principal); Z68.39 Body mass index [BMI] 39.0-39.9, adult
CPT/HCPCS: 97803; 99211

== ENCOUNTER → 2018-07-08 | Outpatient (CLI) | payer OTHER ==
[2018-07-08 15:29] VITALS: BP 114/72; PULSE 78; TEMP 98.1; BMI 38.1
--- NOTE | 2018-07-08 16:47 | FL ---
Barium swallow HISTORY: Dysphagia, post gastric sleeve 49 seconds fluoroscopy time, 9 intraoperative images Quilt Sewer film shows postop change in the upper abdomen. Lung bases are clear. Following ingestion of the barium there was flow across the gastric sleeve. Some reflux noted from the distal esophagus level t o the thoracic esophagus during the course of the exam. There is no extravasation. No obstruction to flow. Contrast courses into the proximal small bowel. IMPRESSION: No evident leak. Postop changes. No obstruction to flow. Some reflux noted as described.
--- NOTE | 2018-07-12 11:56 | P.HPBAR ---
Bariatric H&P - History & Physicial H&P Date: 07/08/18 History & Physicial: Visit/CC: three week follow up Patient initial contact: Initial weight: 110.268 kg Initial weight in pounds: 243.10 Height: 5 ft 5.25 in Initial BMI: 40.1 Last weight: Current weight: 104.78 kg Current weight in pounds: 231.00 Current BMI: 38.1 [place] body weight (based on NIH guidelines): 57.266 kg Excess body weight loss: 10.3% The patient is a 43 year-old F who presents for Bariatric Assessment. Patient has some complaints of dysphagia. She feels she is not drinking enough. Past Medical History Past Medical History: Eye Disorder, GERD/Reflux, Hyperlipidemia, Memory Impairment, Osteoarthritis (OA), Sleep Apnea/CPAP/BIPAP Additional Past Medical History / Comment(s): DIVERTICULITIS, PLANTAR FASCIITIS. No CPAP use. "Very dry eyes". History of Any Multi-Drug Resistant Organisms: None Reported Past Surgical History: Appendectomy, Bariatric Surgery, Cholecystectomy, Hysterectomy, Tonsillectomy, Tubal Ligation Additional Past Surgical History / Comment(s): FOOT SURGERY.sleeve gastectomy 06-25-18 Past Anesthesia/Blood Transfusion Reactions: No Reported Reaction Past Psychological History: Anxiety, Depression Smoking Status: Current every day smoker Past Alcohol Use History: None Reported Additional Past Alcohol Use History / Comment(s): SMOKING <1/2 PPD (DOWN FROM 1 PPD). SMOKING FOR 20 YEARS. Past Drug Use History: None Reported - Past Family History Mother Family Medical History: Cancer Additional Family Medical History / Comment(s): KIDNEY CA Father Family Medical History: Cancer Additional Family Medical History / Comment(s): COLON CANCER Sister(s) Family Medical History: Cancer Additional Family Medical History / Comment(s): MELANOMA Surgical - Exam Vital Signs Temp Pulse BP 98.1 F 78 114/72 07/08/18 14:40 07/08/18 14:40 07/08/18 14:40 - General well developed, well nourished, no distress - Eyes PERRL - ENT normal pinna - Neck no masses - Respiratory normal expansion - Cardiovascular Rhythm: regular - Abdomen Abdomen: soft, non tender Bariatric Assessment & Plan Plan: Status post sleeve gastrectomy. Patient underwent esophagram which showed no significant obstruction. There is no leak. She does have some reflux. Patient received fluid hydration. She'll follow-up for hydration over the next 2 days. Bariatric Checklist Checklist: Plan: Checklist: EGD: 1. Hiatal hernia: 2. H. Pylori: HgbA1c: Vitamin D: Smoking: Current every day smoker Primary care physician referral: GEORGINA Blunt Psychiatry clearance: Cardiology clearance: Sleep study: Diet journal: VTE risk score: VTE risk level: Rehab needs at discharge:
== END | disposition home or self-care (01) ==
LOC: BARWHC3 13:36
PROVIDERS: ATTEND Surgery
DX: Z09 Encounter for follow-up examination after completed treatment for conditions other than malignant neoplasm (principal); K21.9 Gastro-esophageal reflux disease without esophagitis; R13.10 Dysphagia, unspecified; G47.30 Sleep apnea, unspecified; F17.210 Nicotine dependence, cigarettes, uncomplicated; Z99.89 Dependence on other enabling machines and devices; Z98.84 Bariatric surgery status; Z90.49 Acquired absence of other specified parts of digestive tract; Z90.710 Acquired absence of both cervix and uterus; Z90.89 Acquired absence of other organs
CPT/HCPCS: 74220; 99211

== ENCOUNTER → 2018-07-15 | Outpatient (CLI) | payer OTHER ==
[~2018-07-15] MED LIST changes: -DEXAMETHASONE SOD PHOSPHATE 10 MG/ML 1 ML VIAL IV ONE; -ENOXAPARIN 40 MG/0.4 ML SYRINGE SQ ONE; -MIDAZOLAM (PF) 2 MG/2 ML VIAL IV PRN; -ONDANSETRON 4 MG/2 ML VIAL IVP ONE; +ONDANSETRON 4 MG/2 ML VIAL IVP PRN; +SODIUM CHLORIDE 0.9% 1,000 ML IV ONE; +[UNRECOGNIZED DRUG - REMARK] IV ONE; -ceFAZolin IN SWFI 2 GM/20 ML SYRINGE IVP ONE
[2018-07-15 13:58] VITALS: BP 127/70; PULSE 66; RESP 16; TEMP 98.3
[2018-07-15 14:12] LABS: Basophils # (A) 0.1 k/uL (0-0.2); Basophils % (A) 1 %; Eosinophils # (A) 0.2 k/uL (0-0.7); Eosinophils % (A) 3 %; HCT 39.6 % (34.0-46.0); HGB 13.2 gm/dL (11.4-16.0); Lymphocytes # (A) 2.2 k/uL (1.0-4.8); Lymphocytes % (A) 37 %; MCH 28.8 pg (25.0-35.0); MCHC 33.4 g/dL (31.0-37.0); Mean Platelet Volume 7.7; Monocytes # (A) 0.3 k/uL (0-1.0); Monocytes % (A) 5 %; Neutrophils # (A) 3.1 k/uL (1.3-7.7); Neutrophils % (A) 53 %; Platelet Count 280 k/uL (150-450); Poikilocytosis Slight; RBC 4.61 m/uL (3.80-5.40); RDW 14.6 % (11.5-15.5); WBC 5.9 k/uL (3.8-10.6)
[2018-07-15 14:21] LABS: Anion Gap 13 mmol/L; Blood Urea Nitrogen 4 mg/dL (7-17); Calcium 10.4 mg/dL (8.4-10.2); Carbon Dioxide 21 mmol/L (22-30); Chloride 106 mmol/L (98-107); Glucose 82 mg/dL (74-99); Sodium 140 mmol/L (137-145)
== END ==
LOC: PROCWHC3 13:28
PROVIDERS: ATTEND Surgery
DX: E86.0 Dehydration (principal)
CPT/HCPCS: 80048; 85025; J3411; J2405

== ENCOUNTER → 2018-07-18 | Outpatient (CLI) | payer OTHER ==
[~2018-07-18] MED LIST changes: +ONDANSETRON 4 MG/2 ML VIAL IVP NR; -ONDANSETRON 4 MG/2 ML VIAL IVP PRN; -SCOPOLAMINE 1.5MG/72HR PATCH TRANSDERM ONE; -SODIUM CHLORIDE 0.9% 1,000 ML IV ONE; +SODIUM CHLORIDE 0.9% 500 ML 500 ML in EMPTY BAG 1 BAG IV PRN
[2018-07-18 13:26] VITALS: BP 123/64; PULSE 77; RESP 16; TEMP 98.7
== END | disposition home or self-care (01) ==
LOC: PROCWHC3 12:46
PROVIDERS: ATTEND Surgery
DX: E86.0 Dehydration (principal)
CPT/HCPCS: 96360; 96375; J3411; J2405

== ENCOUNTER → 2018-07-18 | Outpatient (CLI) | payer OTHER ==
--- NOTE | 2018-07-18 13:09 | FL ---
EXAMINATION TYPE: FL barium swallow DATE OF EXAM: 07/18/2018 LIMITED UGI/ESOPHAGRAM: CLINICAL HISTORY: History of gastric sleeve surgery June 26 with persistent pain and nausea and vom iting since surgery. TECHNIQUE: Limited esophagram is performed utilizing 10 oz of EZ paque. A total of 30 seconds of flu oroscopic time was utilized during procedure. 52 spot images are saved during today's procedure. COMPARISON: Esophagram from 10 days ago and older esophagram.. FINDINGS: The patient swallowed contrast without difficulty or delay. Esophageal peristalsis and mo tility are satisfactory. There is good flow of contrast along the diaphragmatic hiatus into proximal stomach and subsequent flow from proximal anastomosis into gastric sleeve. There is mild delay from sleeve at distal anastomosis into pylorus and duodenal sweep. There is no evidence of contrast extrav asation to suggest leak. Some gastroesophageal reflux is redemonstrated. Incomplete clearance from di stal esophagus is noted. Patient has nausea prior to during and after procedure. IMPRESSION: No evidence of leak or new significant obstruction status post recent gastric sleeve surg chandler. No significant change from most recent study.
[2018-07-18 13:38] LABS: HCT 41.7 % (34.0-46.0); HGB 13.8 gm/dL (11.4-16.0); MCH 29.1 pg (25.0-35.0); MCHC 33.1 g/dL (31.0-37.0); MCV 87.7 fL (80.0-100.0); Mean Platelet Volume 7.9; Platelet Count 264 k/uL (150-450); RBC 4.75 m/uL (3.80-5.40); RDW 14.7 % (11.5-15.5); WBC 7.9 k/uL (3.8-10.6)
[2018-07-18 13:44] LABS: ALT 63 U/L (9-52); AST 38 U/L (14-36); Albumin 4.7 g/dL (3.5-5.0); Alkaline Phosphatase 114 U/L (38-126); Anion Gap 14 mmol/L; Blood Urea Nitrogen 9 mg/dL (7-17); Calcium 10.4 mg/dL (8.4-10.2); Carbon Dioxide 22 mmol/L (22-30); Chloride 105 mmol/L (98-107); Glucose 82 mg/dL (74-99); Potassium 4.2 mmol/L (3.5-5.1); Sodium 141 mmol/L (137-145); Total Bilirubin 0.8 mg/dL (0.2-1.3); Total Protein 7.3 g/dL (6.3-8.2)
[2018-07-18 19:27] LABS: Iron Saturation 8.99 (12.00-45.00)
[2018-07-18 20:05] LABS: Folate, Serum 12.4 ng/mL
== END | disposition home or self-care (01) ==
LOC: RADFLWHC 11:56
PROVIDERS: ATTEND Surgery
DX: R13.10 Dysphagia, unspecified (principal); D50.8 Other iron deficiency anemias; E66.01 Morbid (severe) obesity due to excess calories
CPT/HCPCS: 36415; 74220; 80053; 82607; 82728; 82746; 83540; 83550; 84134; 84425; 85027

== ENCOUNTER → 2018-07-23 | Outpatient (CLI) | payer OTHER ==
[~2018-07-23] MED LIST changes: +DEXAMETHASONE SOD PHOSPHATE 10 MG/ML 1 ML VIAL IV ONE; +METOCLOPRAMIDE 5 MG/ML 2 ML VIAL IVP ONE; -ONDANSETRON 4 MG/2 ML VIAL IVP NR; +SODIUM CHLORIDE 0.9% 1,000 ML IV ONE; -SODIUM CHLORIDE 0.9% 500 ML 500 ML in EMPTY BAG 1 BAG IV PRN; -[UNRECOGNIZED DRUG - REMARK] IV ONE
[2018-07-23 14:14] VITALS: BP 137/81; PULSE 82; RESP 16; TEMP 98.1
== END ==
LOC: PROCWHC3 13:03
PROVIDERS: ATTEND Surgery
DX: E86.0 Dehydration (principal); E66.01 Morbid (severe) obesity due to excess calories; Z68.35 Body mass index [BMI] 35.0-35.9, adult
CPT/HCPCS: 96360; 96375; J1100; J2765

== ENCOUNTER → 2018-07-23 | Outpatient (CLI) | payer OTHER ==
[2018-07-23 14:23] LABS: HCT 43.4 % (34.0-46.0); HGB 14.1 gm/dL (11.4-16.0); MCH 28.6 pg (25.0-35.0); MCHC 32.6 g/dL (31.0-37.0); MCV 87.8 fL (80.0-100.0); Mean Platelet Volume 7.6; Platelet Count 236 k/uL (150-450); RBC 4.94 m/uL (3.80-5.40); RDW 14.8 % (11.5-15.5); WBC 6.7 k/uL (3.8-10.6)
[2018-07-23 14:42] LABS: ALT 77 U/L (9-52); AST 59 U/L (14-36); Albumin 4.3 g/dL (3.5-5.0); Albumin/Globulin Ratio 1.7; Alkaline Phosphatase 116 U/L (38-126); Anion Gap 11 mmol/L; Blood Urea Nitrogen 10 mg/dL (7-17); Calcium 10.3 mg/dL (8.4-10.2); Carbon Dioxide 23 mmol/L (22-30); Chloride 109 mmol/L (98-107); Globulin 2.6 g/dL; Glucose 89 mg/dL (74-99); Magnesium 1.9 mg/dL (1.6-2.3); Phosphorus 3.7 mg/dL (2.5-4.5); Potassium 3.7 mmol/L (3.5-5.1); Sodium 143 mmol/L (137-145); Total Bilirubin 0.7 mg/dL (0.2-1.3); Total Protein 6.9 g/dL (6.3-8.2)
== END | disposition home or self-care (01) ==
LOC: LABWHC1 13:21
PROVIDERS: ATTEND Surgery
DX: E66.01 Morbid (severe) obesity due to excess calories (principal)
CPT/HCPCS: 36415; 80053; 83735; 84100; 85027

== ENCOUNTER → 2018-07-26 | Outpatient (CLI) | payer OTHER ==
[~2018-07-26] MED LIST changes: -METOCLOPRAMIDE 5 MG/ML 2 ML VIAL IVP ONE; -SODIUM CHLORIDE 0.9% 1,000 ML IV ONE; +SODIUM CHLORIDE 0.9% 1,000 ML IV SCH; +SODIUM CHLORIDE 0.9% 500 ML 500 ML in EMPTY BAG 1 BAG IV PRN
[2018-07-26 09:20] VITALS: BP 121/83; PULSE 69; RESP 18; TEMP 98.3
== END ==
LOC: PROCWHC3 08:49
PROVIDERS: ATTEND Surgery
DX: E86.0 Dehydration (principal)
CPT/HCPCS: 96360; 96375; J1100

== ENCOUNTER 2018-07-29 10:11 | Day surgery (SDC) | payer OTHER ==
[2018-07-25 14:52] VITALS: BMI 35.5
[~2018-07-29 10:11] MED LIST changes: -DEXAMETHASONE SOD PHOSPHATE 10 MG/ML 1 ML VIAL IV ONE; +LACTATED RINGERS 1,000 ML IV SCH; +LIDOCAINE 1% 20 ML VIAL (10MG/ML) FOR IV START INTRADERMA PRN; -SODIUM CHLORIDE 0.9% 1,000 ML IV SCH; -SODIUM CHLORIDE 0.9% 500 ML 500 ML in EMPTY BAG 1 BAG IV PRN
[2018-07-29 10:32] VITALS: TEMP 97.8
[2018-07-29] MEDS ORDERED: FAMOTIDINE 20 MG/2 ML VIAL IV ONE (10:59)
[2018-07-29] MEDS ORDERED: ONDANSETRON 4 MG/2 ML VIAL ONE (11:03)
[2018-07-29] MEDS ORDERED: PROPOFOL 10 MG/ML 20 ML VIAL IV ONE (11:03)
[2018-07-29] MEDS ORDERED: LIDOCAINE 1% INJ 10MG/ML (20 ML MDV) ONE (11:03)
--- NOTE | 2018-07-29 11:17 | P.GSHP ---
History of Present Illness H&P Date: 07/29/18 Chief Complaint: Nausea This a 43-year-old female who underwent gastric sleeve surgery approximately one month ago. Patient's had issues with chronic nausea. Her postoperative esophagram showed no evidence of obstruction. Patient resents today for EGD. Past Medical History Past Medical History: Eye Disorder, GERD/Reflux, Hyperlipidemia, Memory Impairment, Osteoarthritis (OA), Sleep Apnea/CPAP/BIPAP Additional Past Medical History / Comment(s): DIVERTICULITIS, PLANTAR FASCIITIS. No CPAP use. "Very dry eyes". History of Any Multi-Drug Resistant Organisms: None Reported Past Surgical History: Appendectomy, Bariatric Surgery, Cholecystectomy, Hysterectomy, Tonsillectomy, Tubal Ligation Additional Past Surgical History / Comment(s): FOOT SURGERY.sleeve gastectomy 06-25-18 Past Anesthesia/Blood Transfusion Reactions: No Reported Reaction Additional Past Anesthesia/Blood Transfusion Reaction / Comment(s): no hx blood transfusion Smoking Status: Former smoker - Past Family History Mother Family Medical History: Cancer Additional Family Medical History / Comment(s): KIDNEY CA Father Family Medical History: Cancer Additional Family Medical History / Comment(s): COLON CANCER Sister(s) Family Medical History: Cancer Additional Family Medical History / Comment(s): MELANOMA Medications and Allergies Home Medications Medication Instructions Recorded Confirmed Type Sertraline [Zoloft] 100 mg PO QAM 01/15/17 07/29/18 History Omeprazole [PriLOSEC] 20 mg PO BID 06/11/17 07/29/18 History Ondansetron Odt [Zofran Odt] 4 mg PO Q8HR PRN #30 tab 06/27/18 07/29/18 Rx Sucralfate [Carafate] 1 gm PO BID #60 tablet 06/27/18 07/29/18 Rx Prochlorperazine [Compazine] 10 mg PO Q6H PRN 07/18/18 07/29/18 History Allergies Allergy/AdvReac Type Severity Reaction Status Date / Time No Known Allergies Allergy Verified 07/29/18 10:27 Surgical - Exam Vital Signs Temp Pulse Resp BP Pulse Ox 97.8 F 68 15 134/72 95 07/29/18 10:31 07/29/18 10:31 07/29/18 10:31 07/29/18 10:31 07/29/18 10:31 - General well developed, well nourished, no distress - Eyes PERRL - ENT normal pinna - Neck no masses - Respiratory normal expansion - Cardiovascular Rhythm: regular - Abdomen Abdomen: soft, non tender Assessment and Plan Assessment: Nausea. We'll perform EGD.
[2018-07-29 11:31] VITALS: BP 109/65; RESP 16
--- NOTE | 2018-07-29 11:31 | P.OP ---
Date of Procedure: 07/29/18 Preoperative Diagnosis: Nausea Postoperative Diagnosis: Esophagitis No evidence of sleeve stricture Procedure(s) Performed: EGD Anesthesia: MAC Surgeon: Edis Ramsey Pathology: other (Esophagus) Condition: stable Disposition: PACU Description of Procedure: The patient's placed on the endoscopy table in the lateral position. She received IV sedation. The gastroscope placed oropharynx passed in the esophagus and into the stomach. The scope was then placed throughout the stomach. There is no evidence of a sleeve stricture. Scope was then placed through the pylorus. The first and second portion of the duodenum appeared normal. Scope summer back the antrum appeared normal. The scope was then brought back through the sleeve. There is no evidence of any inflammatory changes of the sleeve. There was no tortuosity of the sleeve. The scope was then brought back to the level of the GE junction. There was evidence of esophagitis. There is no significant hiatal hernia. The GE junction was at 40 cm. Distal esophageal biopsies performed. The proximal esophagus appeared normal. Scope withdrawn for patient.
[2018-07-29] MEDS ORDERED: LACTATED RINGERS 1,000 ML IV SCH (11:45)
[2018-07-29 11:50] VITALS: PULSE 62
== END 2018-07-29 12:11 | disposition home or self-care (01) ==
LOC: ORWHC2ENDO 10:11
PROVIDERS: ATTEND Surgery
DX: K21.0 Gastro-esophageal reflux disease with esophagitis (principal); E78.5 Hyperlipidemia, unspecified; M19.90 Unspecified osteoarthritis, unspecified site; G47.30 Sleep apnea, unspecified; Z99.89 Dependence on other enabling machines and devices; H04.129 Dry eye syndrome of unspecified lacrimal gland; Z87.891 Personal history of nicotine dependence; Z87.19 Personal history of other diseases of the digestive system; Z80.51 Family history of malignant neoplasm of kidney; Z80.0 Family history of malignant neoplasm of digestive organs; Z80.8 Family history of malignant neoplasm of other organs or systems; Z98.84 Bariatric surgery status; Z79.899 Other long term (current) drug therapy
CPT/HCPCS: 88305; 43239; J2405; J2001; J2704

== ENCOUNTER → 2018-08-05 | Outpatient (CLI) | payer OTHER ==
[2018-08-05 13:21] VITALS: BP 119/80; PULSE 82; RESP 16; TEMP 98.1; BMI 34.3
--- NOTE | 2018-08-05 16:33 | P.HPBAR ---
Bariatric H&P - History & Physicial H&P Date: 08/05/18 History & Physicial: Visit/CC: post surg/having issues Patient initial contact: Initial weight: 110.268 kg Initial weight in pounds: 243.10 Height: 5 ft 5.75 in Initial BMI: 39.5 Last weight: Current weight: 95.708 kg Current weight in pounds: 211.00 Current BMI: 34.3 [place] body weight (based on NIH guidelines): 58.4 kg Excess body weight loss: 28.0% The patient is a 43 year-old F who presents for Bariatric Assessment. Patient presents today for sleeve gastrectomy follow-up. She still has complaints of nausea. She's had limited oral intake. She denies any vomiting. Past Medical History Past Medical History: Eye Disorder, GERD/Reflux, Hyperlipidemia, Memory Impairment, Osteoarthritis (OA), Sleep Apnea/CPAP/BIPAP Additional Past Medical History / Comment(s): DIVERTICULITIS, PLANTAR FASCIITIS. No CPAP use. "Very dry eyes". History of Any Multi-Drug Resistant Organisms: None Reported Past Surgical History: Appendectomy, Bariatric Surgery, Cholecystectomy, Hysterectomy, Tonsillectomy, Tubal Ligation Additional Past Surgical History / Comment(s): FOOT SURGERY.sleeve gastectomy 06-25-18 Past Anesthesia/Blood Transfusion Reactions: No Reported Reaction Smoking Status: Former smoker - Past Family History Mother Family Medical History: Cancer Additional Family Medical History / Comment(s): KIDNEY CA Father Family Medical History: Cancer Additional Family Medical History / Comment(s): COLON CANCER Sister(s) Family Medical History: Cancer Additional Family Medical History / Comment(s): MELANOMA Surgical - Exam Vital Signs Temp Pulse Resp BP 98.1 F 82 16 119/80 08/05/18 13:18 08/05/18 13:18 08/05/18 13:18 08/05/18 13:18 - General well developed, well nourished, no distress - Eyes PERRL - ENT normal pinna - Abdomen Abdomen: soft, non tender Bariatric Assessment & Plan Plan: Status post sleeve gastrectomy. Patient has had excellent weight loss or her nausea is persistent. Recommend the patient be evaluated tertiary care center for her chronic nausea. The patient would like to go to [facility]. We will facilitate a referral to [facility] for her will nausea. Bariatric Checklist Checklist: Plan: Checklist: EGD: 1. Hiatal hernia: 2. H. Pylori: HgbA1c: Vitamin D: Smoking: Former smoker Primary care physician referral: GEORGINA Blunt Psychiatry clearance: Cardiology clearance: Sleep study: Diet journal: VTE risk score: VTE risk level: Rehab needs at discharge:
== END ==
LOC: BARWHC3 13:01
PROVIDERS: ATTEND Surgery
DX: Z48.815 Encounter for surgical aftercare following surgery on the digestive system (principal); Z98.84 Bariatric surgery status; Z87.891 Personal history of nicotine dependence
CPT/HCPCS: 99211

== ENCOUNTER → 2018-08-08 | Outpatient (CLI) | payer OTHER ==
--- NOTE | 2018-08-08 18:38 | CT ---
EXAMINATION TYPE: CT abdomen pelvis w con DATE OF EXAM: 08/08/2018 COMPARISON: None HISTORY: Nausea and vomiting post gastric bypass surgery x7 weeks ago. CT DLP: 1621 mGycm Automated exposure control for dose reduction was used. TECHNIQUE: Helical acquisition of images was performed from the lung bases through the pelvis. CONTRAST: Performed with Oral Contrast and with IV Contrast, patient injected with 100ml mL of Isovue 300. FINDINGS: Lung bases are clear. There is no pleural effusion. Heart size is normal. There are clips from a prio r bariatric surgery on the stomach. There is small hiatal hernia. Liver spleen pancreas appear normal . There are no dilated ducts. There is no adrenal mass. Kidneys show satisfactory contrast opacification. There is no hydronephrosi s. Ureters are not dilated. There is no retroperitoneal adenopathy. Bladder distends smoothly. There is no inguinal hernia. Lumbar spine is intact. I see no bony destructive process. Bony pelvis is intact. There is no mesenteric edema. There is small umbilical broad-based hernia that contains fat. There is no ascites. There is no free air. I see no intestinal wall thickening. Appendix is not seen. There i s no sign of thickened appendix. IMPRESSION: GASTRIC SURGERY. NO SIGN OF ACUTE ABDOMEN AND PELVIS.
== END ==
LOC: RADCTMAIN 17:41
PROVIDERS: ATTEND Surgery
DX: R10.9 Unspecified abdominal pain (principal); R11.0 Nausea; Z98.84 Bariatric surgery status
CPT/HCPCS: 74177; Q9967